=== PATIENT | male | born 1980 | race Caucasian/White ===

== ENCOUNTER → 2017-02-06 | Outpatient (CLI) | payer OTHER ==
--- NOTE | 2017-02-09 08:38 | CT ---
EXAM DESCRIPTION: Lower Extremity CLINICAL HISTORY: 36 years Male, R93.8 COMPARISON: None. TECHNIQUE: This exam was performed according to our departmental dose-optimization program, which includes automated exposure control, adjustment of the mA and/or kV according to patient size and/or use of iterative reconstruction technique. Thin section imaging with MPR reformatted images were obtained FINDINGS: A single metallic fixation screw courses from the anterolateral margin of the distal tibia into the central distal tibia and a posteromedial fashion. At the lateral posterior margin of the fixation screw head is a small separate fracture fragment that demonstrates minimal bridging callus or bone formation at its superior most extent but he is incompletely fused below this point to the level of the articular surface. The fixation screw head lies just anterior to this fragment. Just posterior to this fragment the fibular shaft and metaphysis of is present and intact. Ankle mortise is well-maintained. Near-anatomic alignment of the articular surface of the talus anterolaterally is present with no more than one or 2 mm of offset at the incompletely fused fracture line. No evidence of osteochondral defect or osteonecrosis of the talus or calcaneus is seen. The medial and posterior malleoli are intact. IMPRESSION: 1. Prior internal fixation of the distal tibia with a single fixation screw extending from anterolateral into the central distal talus. This screw lies just anterior to what appears to be a fracture fragment at the anterolateral tip of the distal tibia. Bridging callus or cortex at the superior margin of this fragment is noted but incomplete bony union beyond this point distally to the articular surface is noted. 2. Well-preserved ankle mortise without chondromalacia or osteochondral defect of the talus or calcaneus and no disruption of the ankle mortise or medial or lateral malleolus. Electronically signed by: Gabe Powers MD 02/09/2017 8:37 AM CDT
== END | disposition home or self-care (01) ==
LOC: CT 13:23
PROVIDERS: ATTEND Orthopaedic Surgery
DX: S82.235A Nondisplaced oblique fracture of shaft of left tibia, initial encounter for closed fracture (principal); X58.XXXA Exposure to other specified factors, initial encounter